=== PATIENT | male | born 1935 | race Caucasian/White ===

== ENCOUNTER → 2017-09-23 | Outpatient (CLI) | payer MEDICARE, OTHER ==
--- NOTE | 2017-09-23 14:50 | CT ---
EXAMINATION TYPE: CT lumbar spine w con DATE OF EXAM: 09/23/2017 COMPARISON: NONE HISTORY: Radiculopathy, DDD CT DLP: 1002 mGycm Automated exposure control for dose reduction was used. CONTRAST: CT scan of the lumbar is performed with IV Contrast, patient injected with 80 mL of Isovue 300. Enhanced CT of the lumbar spine was performed. Bone and soft tissue window settings are submitted as well as coronal and sagittal reconstructions. FINDINGS: Atherosclerosis is seen of the abdominal aorta and its branches. There are bilateral too sm all to accurately characterize renal hypoattenuating lesions measuring 5 mm on the right and 5 mm on the left. There is grade 1 anterolisthesis of L4 on L5 without pars interarticularis defects, therefore likely degenerative in nature. Multilevel moderate degenerative changes of the lumbar spine are seen as inte rvertebral disc space narrowing, endplate sclerosis, osteophytes and facet arthropathy. There is a sl ight levoscoliotic curvature of the lumbar spine. Nonspecific sclerotic lesion is seen within the S2 segment of the sacrum. L1-L2: There is a broad-based disc bulge, facet arthropathy and ligamentum flavum buckling creating m ild bilateral neural foraminal narrowing and without significant spinal canal stenosis. L2-L3: There is a broad-based disc bulge, facet arthropathy and ligamentum flavum buckling creating m ild spinal canal stenosis and mild bilateral neural foraminal narrowing. L3-L4: There is a broad-based disc bulge, facet arthropathy and ligamentum flavum buckling creating m ild to moderate spinal canal stenosis and mild bilateral neural foraminal narrowing. L4-L5: There is disc uncovering from the anterolisthesis as well as a broad-based disc bulge and comb ination with facet arthropathy and ligamentum flavum buckling create severe spinal canal stenosis. No CSF is seen around the spinal cord on image 59 of series 3. L5-S1: There is facet arthropathy, left greater than right, and a broad-based disc bulge creating mil d right and moderate to severe left neural foraminal narrowing. No significant spinal canal stenosis. IMPRESSION: 1. Moderate multilevel degenerative disc disease resulting in severe spinal canal stenosis at L4-L5, mild to moderate spinal canal stenosis at L3-L4, mild spinal canal stenosis at L2-L3 in variable degr ees of neural foraminal narrowing as described above. 2. Grade 1 anterolisthesis of L4 on L5 that is likely on a degenerative basis without pars interartic ularis defects.
== END ==
LOC: RADCTMAIN 12:27
PROVIDERS: ATTEND Family Medicine
DX: M51.16 Intervertebral disc disorders with radiculopathy, lumbar region (principal); M48.061 Spinal stenosis, lumbar region without neurogenic claudication
CPT/HCPCS: 82565; 84520; 72132; 36415; Q9967

== ENCOUNTER 2018-08-24 09:11 | Day surgery (SDC) | payer MEDICARE, OTHER ==
[2018-08-20 11:31] VITALS: BMI 28.8
[~2018-08-24 09:11] MED LIST: LACTATED RINGERS 1,000 ML IV SCH; LIDOCAINE 1% 20 ML VIAL (10MG/ML) FOR IV START INTRADERMA PRN
[2018-08-24 09:36] VITALS: RESP 18; TEMP 98.4
[2018-08-24] MEDS ORDERED: LIDOCAINE 1% INJ 10MG/ML (20 ML MDV) ONE (10:00)
[2018-08-24] MEDS ORDERED: PROPOFOL 10 MG/ML 20 ML VIAL IV ONE (10:00)
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
--- NOTE | 2018-08-24 10:21 | P.OP ---
Date of Procedure: 08/24/18 Preoperative Diagnosis: Screening colonoscopy Postoperative Diagnosis: Diverticulosis Procedure(s) Performed: Colonoscopy Anesthesia: MAC Surgeon: Brigido Solis Pathology: none sent Condition: stable Disposition: PACU Description of Procedure: The patient's placed on the endoscopy table in the lateral position. He received IV sedation. Digital rectal exam was performed which revealed no abnormalities. Flexible colonoscope was placed patient anus passed throughout the entire colon. The ileocecal valve was visually is. The cecum, ascending and transverse colon appeared normal. In the descending and sigmoid colon there is extensive diverticular changes. There is no evidence of any diverticulitis. The scope was then brought back the rectum and this appeared normal. Scope was withdrawn for patient.
[2018-08-24 10:23] VITALS: PULSE 58
[2018-08-24 10:51] VITALS: BP 139/72
== END 2018-08-24 11:05 | disposition home or self-care (01) ==
LOC: ORWHC2ENDO 09:11
PROVIDERS: ATTEND Surgery
DX: Z12.11 Encounter for screening for malignant neoplasm of colon (principal); K57.30 Diverticulosis of large intestine without perforation or abscess without bleeding; E78.5 Hyperlipidemia, unspecified; H91.90 Unspecified hearing loss, unspecified ear; I10 Essential (primary) hypertension; K21.9 Gastro-esophageal reflux disease without esophagitis; Z79.82 Long term (current) use of aspirin; Z79.899 Other long term (current) drug therapy; Z87.891 Personal history of nicotine dependence; Z98.42 Cataract extraction status, left eye; Z98.41 Cataract extraction status, right eye; Z79.51 Long term (current) use of inhaled steroids; Z80.9 Family history of malignant neoplasm, unspecified
CPT/HCPCS: J2001; J2704; G0121

== ENCOUNTER 2019-12-13 18:45 | Emergency (ER) | payer OTHER, MEDICARE ==
[2019-12-13] MEDS ORDERED: SODIUM CHLORIDE 0.9% 500 ML 500 ML IV STA (18:52)
[2019-12-13] MEDS ORDERED: DIPH,PERTUS(ACELL)TETVAC-LF 0.5 ML VIAL IM ONE (18:52)
[2019-12-13 18:53] VITALS: BP 144/99; PULSE 82; RESP 16; TEMP 98.6
[2019-12-13 19:13] LABS: HCT 33.2 % (39.0-53.0); HGB 11.2 gm/dL (13.0-17.5); MCH 32.4 pg (25.0-35.0); MCHC 33.9 g/dL (31.0-37.0); MCV 95.6 fL (80.0-100.0); Mean Platelet Volume 9.7; Platelet Count 124 k/uL (150-450); RBC 3.47 m/uL (4.30-5.90); RDW 12.1 % (11.5-15.5); WBC 4.2 k/uL (3.8-10.6)
[2019-12-13 19:16] LABS: ALT 23 U/L (4-49); AST 32 U/L (17-59); African American GFR (CKD) 65 (>60 ml/min/1.73 sqM); Albumin 3.7 g/dL (3.5-5.0); Alcohol <10 mg/dL; Alkaline Phosphatase 70 U/L (38-126); Anion Gap 7 mmol/L; Blood Urea Nitrogen 22 mg/dL (9-20); Calcium 9.3 mg/dL (8.4-10.2); Carbon Dioxide 24 mmol/L (22-30); Chloride 105 mmol/L (98-107); Glucose 148 mg/dL (74-99); Non-African American GFR(CKD) 56 (>60 ml/min/1.73 sqM); Potassium 3.7 mmol/L (3.5-5.1); Sodium 136 mmol/L (137-145); Total Bilirubin 0.5 mg/dL (0.2-1.3); Total Protein 5.9 g/dL (6.3-8.2)
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
[2019-12-13 19:28] LABS: Prothrombin Time 10.3 sec (9.0-12.0)
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
[2019-12-13] MEDS ORDERED: MORPHINE SULFATE 2 MG/ML SYRINGE IVP STA (20:06)
[2019-12-13 20:07] LABS: Partial Thromboplastin Time 21.8 sec (22.0-30.0)
[2019-12-13 20:14] LABS: Appearance,Urine Clear (Clear); Bilirubin,Urine Negative (Negative); Blood,Urine Negative (Negative); Color,Urine Yellow; Glucose,Urine (UA) Negative (Negative); Ketones,Urine Negative (Negative); Leukocyte Esterase,Urine Negative (Negative); Nitrite,Urine Negative (Negative); Protein,Urine Negative (Negative); Specific Gravity,Urine 1.011 (1.001-1.035); Urobilinogen,Urine <2.0 mg/dL (<2.0)
[2019-12-13 20:25] LABS: Eosinophils # (M) 0.04 k/uL (0-0.7); Monocytes # (M) 0.55 k/uL (0-1.0); Neutrophils # (M) 2.02 k/uL (1.3-7.7); Neutrophils % (M) 48 %; Nucleated Red Blood Cells 0 /100 WBC (0-0); Total Cells Counted 100
[2019-12-13 20:34] LABS: Cocaine Screen,Urine Not Detected (NotDetected); Phencyclidine Screen,Urine Not Detected (NotDetected); Urn Cannabinoid Scrn Detected (NotDetected)
[2019-12-13 20:35] LABS: Amphetamine Screen,Urine Not Detected (NotDetected); Barbiturate Screen,Urine Not Detected (NotDetected); Benzodiazepines Screen,Urine Not Detected (NotDetected); Methadone Screen, Urine Not Detected (NotDetected); Opiate Screen,Urine Not Detected (NotDetected); Oxycodone Screen, Urine Not Detected (NotDetected); Tricyclic Antidepressant,Urine Not Detected (NotDetected)
== END 2019-12-13 20:35 | disposition other institution (70) ==
LOC: EC 18:45
DX: S00.83XA Contusion of other part of head, initial encounter (principal); S62.637A Displaced fracture of distal phalanx of left little finger, initial encounter for closed fracture; S61.203A Unspecified open wound of left middle finger without damage to nail, initial encounter; S61.205A Unspecified open wound of left ring finger without damage to nail, initial encounter; S00.432A Contusion of left ear, initial encounter; S20.222A Contusion of left back wall of thorax, initial encounter; S40.022A Contusion of left upper arm, initial encounter; S00.01XA Abrasion of scalp, initial encounter; I10 Essential (primary) hypertension; H91.90 Unspecified hearing loss, unspecified ear; I60.9 Nontraumatic subarachnoid hemorrhage, unspecified; E78.5 Hyperlipidemia, unspecified; K21.9 Gastro-esophageal reflux disease without esophagitis; N42.9 Disorder of prostate, unspecified; Z79.1 Long term (current) use of non-steroidal anti-inflammatories (NSAID); Z79.82 Long term (current) use of aspirin; Z79.51 Long term (current) use of inhaled steroids; Z79.899 Other long term (current) drug therapy; Z23 Encounter for immunization; V63.5XXA Driver of heavy transport vehicle injured in collision with car, pick-up truck or van in traffic accident, initial encounter; Y92.410 Unspecified street and highway as the place of occurrence of the external cause
CPT/HCPCS: 36415; 93005; 86900; 86901; 80053; 84484; 85025; 85610; 85730; 86850; 81003; 80306; 80320; 72170; 73130; 71045; 72125; 70450; 71260; 74177; 90715; 99291; 96365; 96375; 90471; J0690; J2270; Q9967

== ENCOUNTER → 2021-11-05 | Outpatient (CLI) | payer MEDICARE, OTHER ==
--- NOTE | 2021-11-05 10:09 | US ---
EXAMINATION TYPE: US kidneys/renal and bladder DATE OF EXAM: 11/05/2021 COMPARISON: CT 12/13/19 CLINICAL HISTORY: N289. Renal dz EXAM MEASUREMENTS: Right Kidney: 11.3 x 5.0 x 5.3 cm Left Kidney: 10.8 x 4.2 x 4.0 cm Right Kidney: Cyst seen in on lateral border measuring 2.9 x 2.7 x 2.5 cm appears simple. Left Kidney: No hydronephrosis or masses seen Bladder: wnl Bilateral Jets seen: Yes Prostate was visualized measuring 3.5 x 3.4 x 3.3 cm. IMPRESSION: 1. Right renal cyst.
[2021-11-05 10:46] LABS: Appearance,Urine Clear (Clear); Bilirubin,Urine Negative (Negative); Blood,Urine Negative (Negative); Color,Urine Colorless; Glucose,Urine (UA) Negative (Negative); Ketones,Urine Negative (Negative); Leukocyte Esterase,Urine Negative (Negative); Nitrite,Urine Negative (Negative); PH, Urine 5.5 (5.0-8.0); Protein,Urine Negative (Negative); Specific Gravity,Urine 1.006 (1.001-1.035); Urobilinogen,Urine <2.0 mg/dL (<2.0)
[2021-11-05 16:03] LABS: HGB 10.8 g/dL (13.0-17.0); MCH 31.3 pg (27.0-32.0); MCHC 31.8 g/dL (32.0-37.0); MCV 98.6 fL (80.0-97.0); Mean Platelet Volume 13.6 fL (9.5-12.2); NRBC Per 100 WBC 0 /100 WBCS (0.0-0.0); Platelet Count 96 X 10*3/uL (140-440); RBC 3.45 X 10*6/uL (4.40-5.60); RDW 11.9 % (11.5-14.5); WBC 2.77 X 10*3/uL (4.50-10.00)
[2021-11-05 16:22] LABS: African American GFR (CKD) 45.2 (60.0-200.0); Albumin 4.4 g/dL (3.8-4.9); Albumin/Globulin Ratio 1.91 (1.60-3.17); Anion Gap 9.5 mmol/L (10.00-18.00); BUN/Creat Ratio 16.81 Ratio (12.00-20.00); Blood Urea Nitrogen 26.9 mg/dL (9.0-27.0); Calcium 9.6 mg/dL (8.7-10.3); Carbon Dioxide 24.5 mmol/L (20.0-27.5); Globulin 2.3 g/dL (1.6-3.3); Phosphorus 2.7 mg/dL (2.4-5.1); Potassium 4.1 mmol/L (3.5-5.5); Total Bilirubin 0.7 mg/dL (0.30-1.20); Total Protein 6.7 g/dL (6.2-8.2)
== END | disposition home or self-care (01) ==
LOC: RADUSWWP 08:39
PROVIDERS: ATTEND Family Medicine
DX: N18.1 Chronic kidney disease, stage 1 (principal)
CPT/HCPCS: 76770; 80053; 81003; 84100; 85027

== ENCOUNTER → 2021-11-07 | Outpatient (CLI) | payer MEDICARE, OTHER ==
[2021-11-08 00:53] LABS: Total Protein 24 Hour,Urine 4.5 mg/dL (0.0-165.0)
[2021-11-08 20:57] LABS: Total Volume 24 Hour,Urine 4200 mL
== END | disposition home or self-care (01) ==
LOC: LABWHC1 08:07
PROVIDERS: ATTEND Family Medicine
DX: N18.1 Chronic kidney disease, stage 1 (principal)
CPT/HCPCS: 81050; 84156

== ENCOUNTER 2023-01-30 07:42 | Day surgery (SDC) | payer MEDICARE, OTHER ==
[2023-01-30 09:15] VITALS: TEMP 97.9
--- NOTE | 2023-01-30 10:10 | CT ---
EXAMINATION TYPE: CT lumbar spine w con, [place] myelogram lumbosacral DATE OF EXAM: 01/30/2023 10:00 AM HISTORY: Lower extremity pain and numbness Informed consent was obtained and all the patient's questions were answered. The L3-L4 level was loc alized under fluoroscopy. Standard sterile technique was utilized as well as appropriate local anest hesia 1% Lidocaine and sodium bicarbonate. Spinal needle was introduced into the thecal sac under fl uoroscopic guidance and 10 ml of [id number] was injected. The patient tolerated the procedure well and left the department in stable condition. CT myelography is to follow. IMPRESSION: Successful myelography lumbar spine EXAMINATION TYPE: CT lumbar spine w con, [place] myelogram lumbosacral DATE OF EXAM: 01/30/2023 COMPARISON: None HISTORY: POST MYELOGRAM CT DLP: 499.50 mGycm Automated exposure control for dose reduction was used. CONTRAST: CT scan of the lumbar is performed with IV Contrast, patient injected with 10ml mL of Isovue M200. Enhanced CT of the lumbar spine was performed. Bone and soft tissue window settings are submitted as well as coronal and sagittal reconstructions. L1-L2: Moderate degenerative disc space narrowing with posterior disc bulge. Mild effacement of ventr al thecal sac. No evidence for central stenosis. His mild left lateral recess stenosis and left mina inal encroachment. L2-L3: Moderate disc desiccation moderate circumferential disc bulge greatest posteriorly. Effacement of the ventral thecal sac with mild constriction noted. Borderline central stenosis. Bilateral neura l foraminal encroachment. L3-L4: Moderate disc desiccation with posterior disc bulge. Hypertrophy of ligamentum flavum and face t joint arthropathy contributing to moderate central stenosis. There is moderate bilateral neural for aminal encroachment. L4-L5: Moderate disc desiccation with posterior disc bulge. Hypertrophy of ligamentum flavum and face t joint arthropathy contributing to moderate central stenosis. There is moderate bilateral neural for aminal encroachment. L5-S1: Vacuum disc noted with severe degenerative disc space narrowing. Posterior disc bulge with lef t lateral recess stenosis. No evidence for central stenosis. Mild bilateral foraminal encroachment. IMPRESSION: 1. Multilevel degenerative disc disease as discussed multilevel central stenosis and foraminal encroa chment as outlined above.
[2023-01-30 10:35] VITALS: RESP 16
[2023-01-30 13:21] VITALS: BP 132/62; PULSE 64
== END 2023-01-30 13:57 | disposition home or self-care (01) ==
LOC: RADPROMAIN 07:42
PROVIDERS: ATTEND Orthopaedic Surgery
DX: M47.817 Spondylosis without myelopathy or radiculopathy, lumbosacral region (principal); M48.062 Spinal stenosis, lumbar region with neurogenic claudication; M51.37 Other intervertebral disc degeneration, lumbosacral region
CPT/HCPCS: 62304; 72132; Q9966

== ENCOUNTER → 2023-04-24 | Outpatient (CLI) | payer OTHER ==
[2023-04-24 08:54] VITALS: BP 161/74; PULSE 47; RESP 16; TEMP 97.6
--- NOTE | 2023-04-24 14:50 | P.PAINPG ---
PQRS Measure Charge Sheet Comment: HISTORY OF PRESENT ILLNESS: A 88 yr old male as a referral from the [facility] presents today w severe and chronic LBP > 10 yrs secondary to DDD, spondylosis and facet arthropathy without myelopathy for evaluation. Pt states pain level is provoked at 7/10 in intensity, constant, localized in the mid to lower lumbar spine, predominantly axial, spre in character w occasional shooting pain towards the L hip, back of the LLE. Pain is provoked by standing up from a sitting position. Pain is alleviated by PT integrated w massage x 5 wks in Dec 2022, chiropractic tyreatments monthly x 4 mo which he is currently in, heat, medications (Tyl), CBD oil, topical, repositioning and rest. Oswestry axial pain score at 12. PMH: OA, GERD, Hearing Disorder, Hyperlipidemia, HTN, BPH PSH: TURP, Hernia Repair x2, Hemorrhoidectomy, Sinus Surgery, L Carotid Endarectomy, EGD/ Colonoscopies, Excision Cataracts w Lens Implants, Blepharoplasty, LESIs SH: Negative x3. history. Retired. FH: Sis- [place]. Mo- [place]. All: See list Meds: See list REVIEW OF ORGAN SYSTEMS: CONSTITUTIONAL: No fevers or chills. No recent weight loss. NEUROLOGICAL: + numbness and tingling along the distal extremities. No seizure disorders or headaches. MUSCULOSKELETAL: + pain PSYCHIATRIC: Denies current depression or suicidal thoughts. Physical Examinations : Constitutional : Cooperative , not in acute distress . Neurologic : Cranial nerve II to XII intact. No focal neurological deficits. Psychiatric : alert & oriented x 3. Matching mood & appropriate affect. Judgment & insight intact. Musculoskeletal : Cervical Spine Motor strength in the deltoid and biceps: Normal right side. Normal Left side Motor strength biceps and the wrist extensors: Normal right side . Normal left side Motor strength in the triceps muscle: Normal right side. Normal left side Deep tendon reflexes: Normal at the biceps. Normal at Brachioradialis. Normal at triceps Vertebral body tenderness to deep palpation over Cervical facet loading test: positive bilaterally Spurling test: positive bilaterally Neck distraction test: positive bilaterally Gia sign: positive bilaterally Lumbar spine Motor strength lower extremities ,thigh and legs 5/5 Right side , 5/5 Left side Deep tendon reflexes : Normal Knee Jerk. Normal Ankle Jerk Vertebral body tenderness over L5 Granger Test positive Lumbar facet Loading Test: positive Right / positive Left Range of motion of the lumbar spine Flexion 30 degrees, extension 10 degrees Straight Leg Raise test: Left/ Right positive at <30 degrees Alexandra test: positive right / positive left. Severe tenderness over the Sacroiliac joint on the Right / Left sides Gaenslen test: positive bilaterally Seated flexion test: positive bilaterally. Sacral spine : Severe tenderness over the Sacroiliac joint: right side / left side Range of motion: Flexion of the lumbar spine <60 degrees Range of motion: Extension of the lumbar spine <20 degrees Gaenslen's Test positive Alexandra test: positive right side / left side Thigh Thrust Test Sacral Thrust Test Imaging: CT noncontrast of the lumbar spine from 01/30/23 reviewed Assessment/ Plan : Lumbar DDD Recommendation of L TFESI L5-S1 #1. May need a series of injections for optimal pain relief .Risks, benefits of procedure discussed and patient verbalized understanding. Admits to anti- coagulant use or medical history of diabetes. Protocol for discontinuation/ continuation of medications jerad procedure discussed. All questions answered. I have spent greater than 30 minutes on patient care today. Dr Hernandez was available by phone for the evaluation of this patient. The time was used to review the medical records including relevant urine studies and Prescription history (MAPs), review of the available imaging, evaluation and examination of the patient, coordination of care with the medical staff and if applicable referring physicians, as well as creation of the medical record PQRS Narrative: Smoking Status Former smoker Home Medications: Ambulatory Orders Docusate [Colace] 100 mg PO HS 08/20/18 Ezetimibe/Simvastatin [Ezetimibe-Simvastatin 10-80 mg] 1 each PO DAILY 08/20/18 Finasteride [Proscar] 5 mg PO DAILY 08/20/18 Fluticasone Nasal [place] [Flonase Nasal [place]] 1 spr EA NOSTRIL DAILY 08/20/18 Losartan/Hydrochlorothiazide [Losartan-Hctz 100-12.5 mg Tab] 1 each PO DAILY 08/20/18 Montelukast [Singulair] 10 mg PO DAILY 08/20/18 Multivit-Min/FA/Lycopen/Lutein [Centrum Silver Tablet] 1 each PO DAILY 08/20/18 Omeprazole [PriLOSEC] 20 mg PO AC-BRKFST 08/20/18 Propylene Glycol [Systane Complete] 1 drop BOTH EYES DIRECTED PRN 08/20/18 Saw [place] 80 mg PO BID 08/20/18 Tamsulosin [Flomax] 0.4 mg PO DAILY 08/20/18 Aspirin [Adult Low Dose Aspirin EC] 81 mg PO DAILY 01/21/23 Controlled Substance Measures - Controlled Substance Measures Is patient prescribed a controlled substance at discharge?: No
== END ==
LOC: PNWHC3 07:56
PROVIDERS: ATTEND Specialist
DX: M51.36 Other intervertebral disc degeneration, lumbar region (principal); M19.90 Unspecified osteoarthritis, unspecified site; K21.9 Gastro-esophageal reflux disease without esophagitis; E78.2 Mixed hyperlipidemia; I65.29 Occlusion and stenosis of unspecified carotid artery; N18.9 Chronic kidney disease, unspecified
CPT/HCPCS: 99211

== ENCOUNTER 2023-05-06 08:18 | Day surgery (SDC) | payer OTHER ==
[2023-05-01 15:49] VITALS: BMI 23.2
[2023-05-06] MEDS ORDERED: LACTATED RINGERS 1,000 ML IV SCH (09:05)
[2023-05-06 09:58] VITALS: TEMP 98.4
[2023-05-06] MEDS ORDERED: methylPREDNISolone ACETATE 40 MG/ML 1 ML VIAL ONE (10:06)
[2023-05-06] MEDS ORDERED: IOPAMIDOL M200 10 ML VIAL ONE (10:06)
--- NOTE | 2023-05-06 10:15 | P.PCN ---
Date of Procedure: 05/06/23 Procedure(s) Performed: PREOPERATIVE DIAGNOSIS: 1-Lumbar radiculopathy . 2-lumbar degenerative disc disease. 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 2-lumbar degenerative disc disease. 3-lumbar spondylosis with facet arthropathy without myelopathy PROCEDURE 1. Transforaminal epidural steroid injection under fluoroscopic guidance at left L5-S1 level. (Fluoroscopy images stored on file in the radiology Department ) 2. Lumbar epidurogram . ANESTHESIA: Local with 1% lidocaine 3 ml. EBL: Minimal PROCEDURE INDICATION: The patient with low back pain and radiculopathy symptoms unresponsive to conservative treatment. PROCEDURE DESCRIPTION / TECHNIQUE: The patient was seen and identified in the preoperative area. Risks, benefits, complications, and alternatives were discussed with the patient. The patient agreed to proceed with the procedure and signed the consent. IV was started, and vital signs were stable. Patient was taken to the OR and time out was completed. The patient was placed in the prone position on procedure table and a pillow was placed under the abdomen to reduce lumbar lordosis. The lumbosacral area was prepped and draped in the usual sterile fashion. Critical pause was taken. Vital signs were closely monitored during the procedure. Using oblique fluoroscopy, the chin of the ``Bo dog at left L5-S1 level was identified, and the skin and deeper tissues just below was localized with 1% lidocaine. Subsequently, a 22-gauge 3.5-inch spinal needle was advanced under a tunneled view fluoroscopic guidance just underneath the chin of the ``Bo dog at the left L5-S1 Under lateral fluoroscopy, the needle was then advanced to the posterior border of the interforaminal space. After negative aspiration of CSF and blood and with no paresthesias, 1 mL Isovue 200 contrast dye was injected excellent epidurogram and outlining of the nerve root Subsequently, 3 mL of block solution containing 40 mg Depo-Medrol and 2 mL of 0.9% normal saline PF was injected. Needle was removed . At the end of the procedure, skin was cleansed, and bandages were applied. COMPLICATIONS:none DISPOSITION / PLANS: The patient was placed in a supine position and transferred to the recovery area in a stable condition for observation. There was no evidence of lower extremity motor or sensory deficit after the procedure. Patient was discharged from the recovery room after meeting discharge criteria. Home discharge instructions were given to the patient by the staff. The patient was reexamined prior to discharge.
--- NOTE | 2023-05-06 10:22 | FL ---
EXAMINATION TYPE: FL guided pain mgmt statistic Intraoperative/procedural fluoroscopic services were provided. Total fluoroscopy time is 16.5 seconds with a total of 1 submitted images to PACS. Please s ee the operative/procedural note for further details. DAP: [id number] mGym2
[2023-05-06 10:24] VITALS: BP 159/79; PULSE 71; RESP 18
== END 2023-05-06 10:36 | disposition home or self-care (01) ==
LOC: ORPAIN 08:18
PROVIDERS: ATTEND Specialist
DX: M51.16 Intervertebral disc disorders with radiculopathy, lumbar region (principal); M47.26 Other spondylosis with radiculopathy, lumbar region; I10 Essential (primary) hypertension; Z79.82 Long term (current) use of aspirin
CPT/HCPCS: 64483; J1030; Q9966

== ENCOUNTER → 2023-05-22 | Outpatient (CLI) | payer OTHER ==
[2023-05-22 09:28] VITALS: BP 158/82; PULSE 56; RESP 15; TEMP 98
--- NOTE | 2023-05-22 14:30 | P.PAINPG ---
PQRS Measure Charge Sheet Comment: HISTORY OF PRESENT ILLNESS: A 88 yr old male presents today w severe and chronic LBP > 10 yrs secondary to post laminectomy syndrome for evaluation s/p L TFESI L5-S1 #1. Pt states he experienced 70% pain relief for the last 3 wks s/p procedure. Pt states pain level is provoked at 6/10 in intensity, constant, localized in the L lower lumbar spine, predominantly axial, achy in character w occasional shooting pain towards the L hip, back of the LLE. Pain is provoked by standing up from a sitting position. Pain is alleviated by PT integrated w massage x 5 wks in Dec 2022, chiropractic treatments monthly x 4 mo which he is currently in, heat, medications, topical, topical, repositioning and rest. Oswestry axial pain score at 12. Interventional procedures include L TFESI L5-S1 x1 Medications include Tyl, CBD oil REVIEW OF ORGAN SYSTEMS: CONSTITUTIONAL: No fevers or chills. No recent weight loss. NEUROLOGICAL: + numbness and tingling along the distal extremities. No seizure disorders or headaches. MUSCULOSKELETAL: + pain PSYCHIATRIC: Denies current depression or suicidal thoughts. Physical Examinations : Constitutional : Cooperative , not in acute distress . Neurologic : Cranial nerve II to XII intact. No focal neurological deficits. Psychiatric : alert & oriented x 3. Matching mood & appropriate affect. Judgment & insight intact. Musculoskeletal : Cervical Spine Motor strength in the deltoid and biceps: Normal right side. Normal Left side Motor strength biceps and the wrist extensors: Normal right side . Normal left side Motor strength in the triceps muscle: Normal right side. Normal left side Deep tendon reflexes: Normal at the biceps. Normal at Brachioradialis. Normal at triceps Vertebral body tenderness to deep palpation over Cervical facet loading test: positive bilaterally Spurling test: positive bilaterally Neck distraction test: positive bilaterally Gia sign: positive bilaterally Lumbar spine Motor strength lower extremities ,thigh and legs 5/5 Right side , 5/5 Left side Deep tendon reflexes : Normal Knee Jerk. Normal Ankle Jerk Vertebral body tenderness over L5 Granger Test positive Lumbar facet Loading Test: positive Right / positive Left Range of motion of the lumbar spine Flexion 30 degrees, extension 10 degrees Straight Leg Raise test: Left/ Right positive at <30 degrees Alexandra test: positive right / positive left. Severe tenderness over the Sacroiliac joint on the Right / Left sides Gaenslen test: positive bilaterally Seated flexion test: positive bilaterally. Sacral spine : Severe tenderness over the Sacroiliac joint: right side / left side Range of motion: Flexion of the lumbar spine <60 degrees Range of motion: Extension of the lumbar spine <20 degrees Gaenslen's Test positive Alexandra test: positive right side / left side Thigh Thrust Test Sacral Thrust Test Imaging: CT noncontrast of the lumbar spine from 01/30/23 reviewed Assessment/ Plan : Lumbar DDD, post laminectomy syndrome Recommendation of L TFESI L5-S1 #2. May need a series of injections for optimal pain relief .Risks, benefits of procedure discussed and patient verbalized understanding. Admits to anti- coagulant use or medical history of diabetes. Protocol for discontinuation/ continuation of medications jerad procedure discussed. All questions answered. I have spent greater than 30 minutes on patient care today. Dr Hernandez was available by phone for the evaluation of this patient. The time was used to review the medical records including relevant urine studies and Prescription history (MAPs), review of the available imaging, evaluation and examination of the patient, coordination of care with the medical staff and if applicable referring physicians, as well as creation of the medical record PQRS Narrative: Smoking Status Former smoker Hx Alcohol Use (MH) No Home Medications: Ambulatory Orders Docusate [Colace] 100 mg PO HS 08/20/18 Ezetimibe/Simvastatin [Ezetimibe-Simvastatin 10-80 mg] 1 each PO DAILY 08/20/18 Finasteride [Proscar] 5 mg PO DAILY 08/20/18 Fluticasone Nasal [place] [Flonase Nasal [place]] 1 spr EA NOSTRIL DAILY 08/20/18 Losartan/Hydrochlorothiazide [Losartan-Hctz 100-12.5 mg Tab] 1 each PO DAILY 08/20/18 Montelukast [Singulair] 10 mg PO DAILY 08/20/18 Multivit-Min/FA/Lycopen/Lutein [Centrum Silver Tablet] 1 each PO DAILY 08/20/18 Saw [place] 80 mg PO BID 08/20/18 Tamsulosin [Flomax] 0.4 mg PO DAILY 08/20/18 Aspirin [Adult Low Dose Aspirin EC] 81 mg PO DAILY 01/21/23 Apixaban [Eliquis] 5 mg PO BID 04/24/23 Calcium Carbonate [Calcium] 600 mg PO DAILY 05/01/23 Cyanocobalamin (Vitamin B-12) [Vitamin B-12] 1,000 mcg PO DAILY 05/01/23 Ferrous Sulfate [Feosol] 325 mg PO DAILY 05/01/23 Omeprazole/Sodium Bicarbonate [Omeprazole-Bicarb 20-1,100 Cap] 1 each PO 05/01/23 Controlled Substance Measures - Controlled Substance Measures Is patient prescribed a controlled substance at discharge?: No
== END ==
LOC: PNWHC3 08:24
PROVIDERS: ATTEND Specialist
DX: M51.36 Other intervertebral disc degeneration, lumbar region (principal); M96.1 Postlaminectomy syndrome, not elsewhere classified; Z87.891 Personal history of nicotine dependence; Z79.82 Long term (current) use of aspirin
CPT/HCPCS: 99211

== ENCOUNTER → 2023-06-03 | Day surgery (SDC) | payer OTHER ==
[2023-05-30 09:20] VITALS: BMI 22.8
[~2023-06-03] MED LIST changes: +DEXAMETHASONE SOD PHOSPHATE 10 MG/ML 1 ML VIAL ONE; +IOPAMIDOL M300 15ML VIAL ONE; -LIDOCAINE 1% 20 ML VIAL (10MG/ML) FOR IV START INTRADERMA PRN; +ROPIVACAINE 5MG/ML 20ML VIAL ONE
[2023-06-03 08:32] VITALS: TEMP 97.1
--- NOTE | 2023-06-03 08:41 | P.PCN ---
Description of Procedure: PREOPERATIVE DIAGNOSIS: 1-Lumbar radiculopathy . 2-lumbar degenerative disc disease. 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 2-lumbar degenerative disc disease. 3-lumbar spondylosis with facet arthropathy without myelopathy PROCEDURE 1. Transforaminal epidural steroid injection under fluoroscopic guidance at LEFT L5-S1 level. (Fluoroscopy images stored on file in the radiology Department ) 2. Lumbar epidurogram . ANESTHESIA: Local with 1% lidocaine 5 ml. subcutaneously. Continuous pulse ox, EKG, blood pressure and verbal communication was maintained with the patient. EBL: Minimal PROCEDURE INDICATION: The patient with low back pain and radiculopathy symptoms unresponsive to conservative treatment. The patient was seen and identified in the preoperative area. Risks, benefits, complications, and alternatives were discussed with the patient. The patient agreed to proceed with the procedure and signed the consent. IV was started, and vital signs were stable. PROCEDURE DESCRIPTION / TECHNIQUE: After getting consent, patient was taken to the OR and time out was completed. The patient was placed in the prone position on procedure table and a pillow was placed under the abdomen to reduce lumbar lordosis. The lumbosacral area was prepped and draped in the usual sterile fashion. Critical pause was taken. After injecting 5 mL of plain 1% lidocaine subcutaneously, under oblique view of the fluoroscope, a 22-gauge spinal needle was introduced under the tunnel view of the fluoroscope on the LEFT side and the needle was advanced so that the tip of the needle was at the posterior inferior quadrant of the intervertebral foramen at the lateral view of the fluoroscope and in the lateral third of the facet column in the AP view of the fluoroscope. Negative CSF, negative blood, negative paresthesia. After needle position confirmation by AP and cross table lateral view, 3 mL of Isovue-M 200 contrast was injected under continuous fluoroscope. No contrast was noted in the intrathecal or intravascular space. The epidurogram was noted. Again after repeated negative aspiration 2.5 mL solution was injected which consists 1.5 mL of normal saline mixed with 1 mL of 20 mg dexamethasone. Needle was removed . At the end of the procedure, skin was cleansed, and bandages were applied. DISPOSITION / PLANS: No complication. The patient tolerated the procedure well. The patient was placed in a supine position and transferred to the recovery area in a stable condition for observation. There was no evidence of lower extremity motor or sensory deficit after the procedure. Patient was discharged from the recovery room after meeting discharge criteria. Home discharge instructions were given to the patient by the staff. The patient was reexamined prior to discharge.
[2023-06-03 09:14] VITALS: BP 152/74; PULSE 63; RESP 16
--- NOTE | 2023-06-03 09:30 | FL ---
EXAMINATION TYPE: FL guided pain mgmt statistic Intraoperative/procedural fluoroscopic services were provided. Total fluoroscopy time is 77 seconds with a total of 3 submitted images to PACS. Please see the operative/procedural note for further details. DAP: [id number] mGym2
== END ==
LOC: ORPAIN 07:21
PROVIDERS: ATTEND Pain Medicine Interventional Pain Medicine
DX: M51.16 Intervertebral disc disorders with radiculopathy, lumbar region (principal); M47.26 Other spondylosis with radiculopathy, lumbar region; I48.91 Unspecified atrial fibrillation; Z79.01 Long term (current) use of anticoagulants
CPT/HCPCS: 64483; J1100; Q9967; J2795

== ENCOUNTER → 2023-06-25 | Outpatient (CLI) | payer OTHER ==
[2023-06-25 10:35] VITALS: BP 178/70; PULSE 60; RESP 16; TEMP 97.1
--- NOTE | 2023-06-25 12:41 | P.PAINPG ---
PQRS Measure Charge Sheet Comment: HISTORY OF PRESENT ILLNESS: A 88 yr old male presents today w severe and chronic LBP > 10 yrs secondary to post laminectomy syndrome for evaluation s/p L TFESI L5-S1 #2. Pt states he experienced 80 % pain relief for the last 3 wks s/p procedure. Pt states pain level is provoked at 2 /10 in intensity, constant, localized in the L lower lumbar spine, predominantly axial, achy in character w occasional shooting pain towards the L hip, back of the LLE. Pain is provoked by standing up from a sitting position. Pain is alleviated by PT integrated w massage x 5 wks in Dec 2022, chiropractic treatments monthly x 4 mo which he is currently in, heat, medications, topical, topical, repositioning and rest. Oswestry axial pain score at 12. Interventional procedures include L TFESI L5-S1 x2 Medications include Tyl, CBD oil REVIEW OF ORGAN SYSTEMS: CONSTITUTIONAL: No fevers or chills. No recent weight loss. NEUROLOGICAL: + numbness and tingling along the distal extremities. No seizure disorders or headaches. MUSCULOSKELETAL: + pain PSYCHIATRIC: Denies current depression or suicidal thoughts. Physical Examinations : Constitutional : Cooperative , not in acute distress . Neurologic : Cranial nerve II to XII intact. No focal neurological deficits. Psychiatric : alert & oriented x 3. Matching mood & appropriate affect. Judgment & insight intact. Musculoskeletal : Cervical Spine Motor strength in the deltoid and biceps: Normal right side. Normal Left side Motor strength biceps and the wrist extensors: Normal right side . Normal left side Motor strength in the triceps muscle: Normal right side. Normal left side Deep tendon reflexes: Normal at the biceps. Normal at Brachioradialis. Normal at triceps Vertebral body tenderness to deep palpa tion over Cervical facet loading test: positive bilaterally Spurling test: positive bilaterally Neck distraction test: positive bilaterally Gia sign: positive bilaterally Lumbar spine Motor strength lower extremities ,thigh and legs 5/5 Right side , 5/5 Left side Deep tendon reflexes : Normal Knee Jerk. Normal Ankle Jerk Vertebral body tenderness over L5 Granger Test positive Lumbar facet Loading Test: positive Right / positive Left Range of motion of the lumbar spine Flexion 30 degrees, extension 10 degrees Straight Leg Raise test: Left/ Right positive at <30 degrees Alexandra test: positive right / positive left. Severe tenderness over the Sacroiliac joint on the Right / Left sides Gaenslen test: positive bilaterally Seated flexion test: positive bilaterally. Sacral spine : Severe tenderness over the Sacroiliac joint: right side / left side Range of motion: Flexion of the lumbar spine <60 degrees Range of motion: Extension of the lumbar spine <20 degrees Gaenslen's Test positive Alexadnra test: positive right side / left side Thigh Thrust Test Sacral Thrust Test Imaging: CT noncontrast of the lumbar spine from 01/30/23 reviewed Assessment/ Plan : Lumbar DDD, post laminectomy syndrome Will manage residual pain and may RTC on an as needed basis. All questions answered. I have spent greater than 30 minutes on patient care today. Dr Hernandez was available by phone for the evaluation of this patient. The time was used to review the medical records including relevant urine studies and Prescription his tory (MAPs), review of the available imaging, evaluation and examination of the patient, coordination of care with the medical staff and if applicable referring physicians, as well as creation of the medical record PQRS Narrative: Smoking Status Former smoker Hx Alcohol Use (MH) No Home Medications: Ambulatory Orders Docusate [Colace] 100 mg PO HS 08/20/18 Ezetimibe/Simvastatin [Ezetimibe-Simvastatin 10-80 mg] 1 each PO DAILY 08/20/18 Finasteride [Proscar] 5 mg PO DAILY 08/20/18 Fluticasone Nasal [place] [Flonase Nasal [place]] 1 spr EA NOSTRIL DAILY 08/20/18 Losartan/Hydrochlorothiazide [Losartan-Hctz 100-12.5 mg Tab] 1 each PO DAILY 12/31 Montelukast [Singulair] 10 mg PO DAILY 08/20/18 Multivit-Min/FA/Lycopen/Lutein [Centrum Silver Tablet] 1 each PO DAILY 08/20/18 Saw [place] 80 mg PO BID 08/20/18 Tamsulosin [Flomax] 0.4 mg PO DAILY 08/20/18 Apixaban [Eliquis] 5 mg PO BID 04/24/23 Calcium Carbonate [Calcium] 600 mg PO DAILY 05/01/23 Cyanocobalamin (Vitamin B-12) [Vitamin B-12] 1,000 mcg PO DAILY 05/01/23 Ferrous Sulfate [Feosol] 325 mg PO DAILY 05/01/23 Omeprazole/Sodium Bicarbonate [Omeprazole-Bicarb 20-1,100 Cap] 1 each PO DAILY 05/01/23 Controlled Substance Measures - Controlled Substance Measures Is patient prescribed a controlled substance at discharge?: No
== END ==
LOC: PNWHC3 09:20
PROVIDERS: ATTEND Specialist
DX: M51.36 Other intervertebral disc degeneration, lumbar region (principal); M96.1 Postlaminectomy syndrome, not elsewhere classified; Z87.891 Personal history of nicotine dependence; Z79.01 Long term (current) use of anticoagulants
CPT/HCPCS: 99211

== ENCOUNTER → 2024-01-29 | Outpatient (CLI) | payer OTHER ==
[2024-01-29 09:20] VITALS: BP 155/72; PULSE 89; RESP 16; TEMP 97.2
--- NOTE | 2024-01-29 13:56 | P.PAINPG ---
PQRS Measure Charge Sheet Comment: HISTORY OF PRESENT ILLNESS: A 89 yr old male presents today w severe and chronic LBP > 10 yrs secondary to post laminectomy syndrome for evaluation. Pt states pain level is provoked at 6 /10 in intensity, constant, localized in the L lower lumbar spine, predominantly axial, achy in character w occasional shooting pain towards the L hip, back of the LLE. Pain is provoked by standing up from a sitting position. Pain is alleviated by PT integrated w massage x 5 wks in Dec 2022, chiropractic treatments monthly since 2022 which he is currently in, heat, medications, topical, use of a cane for ambulatory assistance, repositioning and rest. Interventional procedures include L TFESI L5-S1 x2 Medications include Tyl, CBD oil REVIEW OF ORGAN SYSTEMS: CONSTITUTIONAL: No fevers or chills. No recent weight loss. NEUROLOGICAL: + numbness and tingling along the distal extremities. No seizure disorders or headaches. MUSCULOSKELETAL: + pain PSYCHIATRIC: Denies current depression or suicidal thoughts. Physical Examinations : Constitutional : Cooperative , not in acute distress . Neurologic : Cranial nerve II to XII intact. No focal neurological deficits. Psychiatric : alert & oriented x 3. Matching mood & appropriate affect. Judgment & insight intact. Musculoskeletal : Cervical Spine Motor strength in the deltoid and biceps: Normal right side. Normal Left side Motor strength biceps and the wrist extensors: Normal right side . Normal left side Motor strength in the triceps muscle: Normal right side. Normal left side Deep tendon reflexes: Normal at the biceps. Normal at Brachioradialis. Normal at triceps Vertebral body tenderness to deep palpation over Cervical facet loading test: positive bilaterally Spurling test: positive bilaterally Neck distraction test: positive bilaterally Gia sign: positive bilaterally Lumbar spine Motor strength lower extremities ,thigh and legs 5/5 Right side , 5/5 Left side Deep tendon reflexes : Normal Knee Jerk. Normal Ankle Jerk Vertebral body tenderness over L5 Granger Test positive Lumbar facet Loading Test: positive Right / positive Left Range of motion of the lumbar spine Flexion 30 degrees, extension 10 degrees Straight Leg Raise test: Left/ Right positive at <30 degrees Alexandra test: positive right / positive left. Severe tenderness over the Sacroiliac joint on the Right / Left sides Gaenslen test: positive bilaterally Seated flexion test: positive bilaterally. Sacral spine : Severe tenderness over the Sacroiliac joint: right side / left side Range of motion: Flexion of the lumbar spine <60 degrees Range of motion: Extension of the lumbar spine <20 degrees Gaenslen's Test positive Alexandra test: positive right side / left side Thigh Thrust Test Sacral Thrust Test Imaging: CT noncontrast of the lumbar spine from 01/30/23 reviewed Assessment/ Plan : Lumbar radiculopathy, post laminectomy syndrome Recommendation of L TFESI L5-S1 #3. Risks, benefits of procedure discussed and pt verbalized understanding. Protocol for discontinuation/ continuation of medications jerad procedure discussed. All questions answered. I have spent greater than 30 minutes on patient care today. Dr Hernandez was available by phone for the evaluation of this patient. The time was used to review the medical records including relevant urine studies and Prescription history (MAPs), review of the available imaging, evaluation and examination of the patient, coordination of care with the medical staff and if applicable r eferring physicians, as well as creation of the medical record PQRS Narrative: Smoking Status Former smoker Hx Alcohol Use (MH) No Home Medications: Ambulatory Orders Docusate [Colace] 100 mg PO HS 08/20/18 Ezetimibe/Simvastatin [Ezetimibe-Simvastatin 10-80 mg] 1 each PO DAILY 08/20/18 Finasteride [Proscar] 5 mg PO DAILY 08/20/18 Fluticasone Nasal [place] [Flonase Nasal [place]] 1 spr EA NOSTRIL DAILY 08/20/18 Losartan/Hydrochlorothiazide [Losartan-Hctz 100-12.5 mg Tab] 1 each PO DAILY 08/20/18 Montelukast [Singulair] 10 mg PO DAILY 08/20/18 Multivit-Min/FA/Lycopen/Lutein [Centrum Silver Tablet] 1 each PO DAILY 08/20/18 Saw [place] 80 mg PO BID 08/20/18 Tamsulosin [Flomax] 0.4 mg PO DAILY 08/20/18 Apixaban [Eliquis] 5 mg PO BID 04/24/23 Calcium Carbonate [Calcium] 600 mg PO DAILY 05/01/23 Cyanocobalamin (Vitamin B-12) [Vitamin B-12] 1,000 mcg PO DAILY 05/01/23 Ferrous Sulfate [Feosol] 325 mg PO DAILY 05/01/23 Omeprazole/Sodium Bicarbonate [Omeprazole-Bicarb 20-1,100 Cap] 1 each PO DAILY 05/01/23 Controlled Substance Measures - Controlled Substance Measures Is patient prescribed a controlled substance at discharge?: No
== END ==
LOC: PNWHC3 08:28
PROVIDERS: ATTEND Specialist
DX: M54.16 Radiculopathy, lumbar region
CPT/HCPCS: 99211

== ENCOUNTER 2024-02-12 12:15 | Day surgery (SDC) | payer OTHER ==
[2024-02-12 13:37] VITALS: TEMP 97.1
[2024-02-12] MEDS ORDERED: LACTATED RINGERS 1,000 ML IV SCH (13:38)
[2024-02-12] MEDS ORDERED: methylPREDNISolone ACETATE 40 MG/ML 1 ML VIAL ONE (13:57)
[2024-02-12] MEDS ORDERED: IOPAMIDOL M200 10 ML VIAL ONE (13:57)
--- NOTE | 2024-02-12 14:04 | P.PCN ---
Date of Procedure: 02/12/24 Procedure(s) Performed: PREOPERATIVE DIAGNOSIS: 1-Lumbar radiculopathy . 2-lumbar degenerative disc disease. 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 2-lumbar degenerative disc disease. 3-lumbar spondylosis with facet arthropathy without myelopathy PROCEDURE 1. Transforaminal epidural steroid injection under fluoroscopic guidance at left L5-S1 level. (Fluoroscopy images stored on file in the radiology Department ) 2. Lumbar epidurogram . ANESTHESIA: Local with 1% lidocaine 3 ml. EBL: Minimal PROCEDURE INDICATION: The patient with low back pain and radiculopathy symptoms unresponsive to conservative treatment. PROCEDURE DESCRIPTION / TECHNIQUE: The patient was seen and identified in the preoperative area. Risks, benefits, complications, and alternatives were discussed with the patient. The patient agreed to proceed with the procedure and signed the consent. IV was started, and vital signs were stable. Patient was taken to the OR and time out was completed. The patient was placed in the prone position on procedure table and a pillow was placed under the abdomen to reduce lumbar lordosis. The lumbosacral area was prepped and draped in the usual sterile fashion. Critical pause was taken. Vital signs were closely monitored during the procedure. Using oblique fluoroscopy, the chin of the ``Bo dog at left L5-S1 level was identified, and the skin and deeper tissues just below was localized with 1% lidocaine. Subsequently, a 22-gauge 3.5-inch spinal needle was advanced under a tunneled view fluoroscopic guidance just underneath the chin of the ``Bo dog at the left L5-S1 Under lateral fluoroscopy, the needle was then advanced to the posterior border of the interforaminal space. After negative aspiration of CSF and blood and with no paresthesias, 1 mL Isovue 200 contrast dye was injected excellent epidurogram and outlining of the nerve root Subsequently, 3 mL of block solution containing 40 mg Depo-Medrol and 2 mL of 0.9% normal saline PF was injected. Needle was removed . At the end of the procedure, skin was cleansed, and bandages were applied. COMPLICATIONS:none DISPOSITION / PLANS: The patient was placed in a supine position and transferred to the recovery area in a stable condition for observation. There was no evidence of lower extremity motor or sensory deficit after the procedure. Patient was discharged from the recovery room after meeting discharge criteria. Home discharge instructions were given to the patient by the staff. The patient was reexamined prior to discharge.
--- NOTE | 2024-02-12 14:22 | FL ---
Intraoperative/procedural fluoroscopic services were provided for transforaminal injection. Total flu oroscopy time is 15.5 seconds with a total of 2 submitted images to PACS. Total DAP 0.35869 mGym2. P lease see the operative note for further details. [facility], , 02/12/2024 2:20 PM
[2024-02-12 14:30] VITALS: BP 128/76; PULSE 65; RESP 16
== END 2024-02-12 14:35 | disposition home or self-care (01) ==
LOC: ORPAIN 12:15
PROVIDERS: ATTEND Specialist
DX: M47.26 Other spondylosis with radiculopathy, lumbar region (principal); M51.16 Intervertebral disc disorders with radiculopathy, lumbar region
CPT/HCPCS: 64483; Q9966; J1010

== ENCOUNTER → 2024-02-25 | Outpatient (CLI) | payer OTHER ==
[2024-02-25 08:36] VITALS: BP 134/68; PULSE 64; RESP 16; TEMP 96.9
--- NOTE | 2024-02-25 16:03 | P.PAINPG ---
PQRS Measure Charge Sheet Comment: HISTORY OF PRESENT ILLNESS: A 89 yr old male presents today w severe and chronic LBP > 10 yrs secondary to post laminectomy syndrome for evaluation s/p L TFESI L5-S1 #3. Pt states he experienced 80 % pain relief x 2 wks s/p procedure. Pt states pain level is provoked at 3 /10 in intensity, constant, localized in the L lower lumbar spine, predominantly axial, achy in character w occasional shooting pain towards the L hip, back of the LLE. Pain is provoked by standing up from a sitting position. Pain is alleviated by PT integrated w massage x 5 wks in Dec 2022, chiropractic treatments monthly since 2022 which he is currently in, heat, medications, topical, use of a cane for ambulatory assistance, repositioning and rest. Interventional procedures include L TFESI L5-S1 x3 Medications include Tyl, CBD oil REVIEW OF ORGAN SYSTEMS: CONSTITUTIONAL: No fevers or chills. No recent weight loss. NEUROLOGICAL: + numbness and tingling along the distal extremities. No seizure disorders or headaches. MUSCULOSKELETAL: + pain PSYCHIATRIC: Denies current depression or suicidal thoughts. Physical Examinations : Constitutional : Cooperative , not in acute distress . Neurologic : Cranial nerve II to XII intact. No focal neurological deficits. Psychiatric : alert & oriented x 3. Matching mood & appropriate affect. Judgment & insight intact. Musculoskeletal : Cervical Spine Motor strength in the deltoid and biceps: Normal right side. Normal Left side Motor strength biceps and the wrist extensors: Normal right side . Normal left side Motor strength in the triceps muscle: Normal right side. Normal left side Deep tendon reflexes: Normal at the biceps. Normal at Brachioradialis. Normal at triceps Vertebral body tenderness to deep palpation over Cervical facet loading test: positive bilaterally Spurling test: positive bilaterally Neck distraction test: positive bilaterally Gia sign: positive bilaterally Lumbar spine Motor strength lower extremities ,thigh and legs 5/5 Right side , 5/5 Left side Deep tendon reflexes : Normal Knee Jerk. Normal Ankle Jerk Vertebral body tenderness over L5 Granger Test positive Lumbar facet Loading Test: positive Right / positive Left Range of motion of the lumbar spine Flexion 30 degrees, extension 10 degrees Straight Leg Raise test: Left/ Right positive at <30 degrees Alexandra test: positive right / positive left. Severe tenderness over the Sacroiliac joint on the Right / Left sides Gaenslen test: positive bilaterally Seated flexion test: positive bilaterally. Sacral spine : Severe tenderness over the Sacroiliac joint: right side / left side Range of motion: Flexion of the lumbar spine <60 degrees Range of motion: Extension of the lumbar spine <20 degrees Gaenslen's Test positive Alexandra test: positive right side / left side Thigh Thrust Test Sacral Thrust Test Imaging: CT non contrast of the lumbar spine from 01/30/23 reviewed Assessment/ Plan : Lumbar radiculopathy, post laminectomy syndrome Will manage residual pain and may RTC on an as needed basis. All questions answered. I have spent greater than 30 minutes on patient care today. Dr Hernandez was available by phone for the evaluation of this patient. The time was used to review the medical records including relevant urine studies and Prescription history (MAPs), review of the available imaging, evaluation and examination of the patient, coordination of care with the medical staff and if applicable referring physicians, as well as creation of the medical record PQRS Narrative: Smoking Status Former smoker Hx Alcohol Use (MH) No Home Medications: Ambulatory Orders Docusate [Colace] 100 mg PO HS 08/20/18 Ezetimibe/Simvastatin [Ezetimibe-Simvastatin 10-80 mg] 1 each PO DAILY 08/20/18 Finasteride [Proscar] 5 mg PO DAILY 08/20/18 Fluticasone Nasal [place] [Flonase Nasal [place]] 1 spr EA NOSTRIL DAILY 08/20/18 Losartan/Hydrochlorothiazide [Losartan-Hctz 100-12.5 mg Tab] 1 each PO DAILY 08/20/18 Montelukast [Singulair] 10 mg PO DAILY 08/20/18 Multivit-Min/FA/Lycopen/Lutein [Centrum Silver Tablet] 1 each PO DAILY 08/20/18 Saw [place] 80 mg PO BID 08/20/18 Tamsulosin [Flomax] 0.4 mg PO DAILY 08/20/18 Apixaban [Eliquis] 5 mg PO BID 04/24/23 Calcium Carbonate [Calcium] 600 mg PO DAILY 05/01/23 Cyanocobalamin (Vitamin B-12) [Vitamin B-12] 1,000 mcg PO DAILY 05/01/23 Ferrous Sulfate [Feosol] 325 mg PO DAILY 05/01/23 Omeprazole/Sodium Bicarbonate [Omeprazole-Bicarb 20-1,100 Cap] 1 each PO DAILY 05/01/23 Controlled Substance Measures - Controlled Substance Measures Is patient prescribed a controlled substance at discharge?: No
== END ==
LOC: PNWHC3 08:19
PROVIDERS: ATTEND Specialist
DX: M96.1 Postlaminectomy syndrome, not elsewhere classified (principal); M54.16 Radiculopathy, lumbar region; Z87.891 Personal history of nicotine dependence
CPT/HCPCS: 99211

== ENCOUNTER → 2024-06-10 | Outpatient (CLI) | payer OTHER ==
[2024-06-10 08:06] VITALS: BP 155/69; PULSE 61; RESP 16; TEMP 97.1
--- NOTE | 2024-06-10 14:53 | P.PAINPG ---
PQRS Measure Charge Sheet Comment: HISTORY OF PRESENT ILLNESS: A 89 yr old male presents today w severe and chronic LBP > 10 yrs secondary to post laminectomy syndrome for evaluation. Pt states pain level is provoked at 5-7 /10 in intensity, intermittent, localized in the L lower lumbar spine, predominantly axial, achy in character w occasional shooting pain towards the L back, hip, thigh and L calf. Pain is provoked by standing up from a sitting position. Pain is alleviated by PT integrated w massage x 5 wks in Dec 2022, chiropractic treatments monthly since 2022 which he is currently in, heat, medications, topical, use of a cane for ambulatory assistance, repositioning and rest. Interventional procedures include L TFESI L5-S1 x3 Medications include Tyl, CBD oil REVIEW OF ORGAN SYSTEMS: CONSTITUTIONAL: No fevers or chills. No recent weight loss. NEUROLOGICAL: + numbness and tingling along the distal extremities. No seizure disorders or headaches. MUSCULOSKELETAL: + pain PSYCHIATRIC: Denies current depression or suicidal thoughts. Physical Examinations : Constitutional : Cooperative , not in acute distress . Neurologic : Cranial nerve II to XII intact. No focal neurological deficits. Psychiatric : alert & oriented x 3. Matching mood & appropriate affect. Judgment & insight intact. Musculoskeletal : Cervical Spine Motor strength in the deltoid and biceps: Normal right side. Normal Left side Motor strength biceps and the wrist extensors: Normal right side . Normal left side Motor strength in the triceps muscle: Normal right side. Normal left side Deep tendon reflexes: Normal at the biceps. Normal at Brachioradialis. Normal at triceps Vertebral body tenderness to deep palpation over Cervical facet loading test: positive bilaterally Spurling test: positive bilaterally Neck distraction test: positive bilaterally Gia sign: positive bilaterally Lumbar spine Motor strength lower extremities ,thigh and legs 5/5 Right side , 5/5 Left side Deep tendon reflexes : Normal Knee Jerk. Normal Ankle Jerk Vertebral body tenderness over L5 Granger Test positive Lumbar facet Loading Test: positive Right / positive Left Range of motion of the lumbar spine Flexion 30 degrees, extension 10 degrees Straight Leg Raise test: Left/ Right positive at <30 degrees Alexandra test: positive right / positive left. Severe tenderness over the Sacroiliac joint on the Right / Left sides Gaenslen test: positive bilaterally Seated flexion test: positive bilaterally. Sacral spine : Severe tenderness over the Sacroiliac joint: right side / left side Range of motion: Flexion of the lumbar spine <60 degrees Range of motion: Extension of the lumbar spine <20 degrees Gaenslen's Test positive Alexandra test: positive right side / left side Thigh Thrust Test Sacral Thrust Test Imaging: CT non contrast of the lumbar spine from 01/30/23 reviewed Assessment/ Plan : Lumbar radiculopathy, post laminectomy syndrome Recommendation of L TFESI L4-L5/ L5-S1 #4. Risks, benefits of procedure discussed and patient verbalized understanding. Protocol for discontinuation/continuation of medication surrounding procedure discussed. All questions answered. I have spent greater than 30 minutes on patient care today. Dr Hernandez was available by phone for the evaluation of this patient. The time was used to review the medical records including relevant urine studies and Prescription history (MAPs), review of the available imaging, evaluation and examination of the patient, coordination of care with the medical staff and if applicable referring physicians, as well as creation of the medical record PQRS Narrative: Smoking Status Former smoker Hx Alcohol Use (MH) No Home Medications: Ambulatory Orders Docusate [Colace] 100 mg PO HS 08/20/18 Ezetimibe/Simvastatin [Ezetimibe-Simvastatin 10-80 mg] 1 each PO DAILY 08/20/18 Finasteride [Proscar] 5 mg PO DAILY 08/20/18 Fluticasone Nasal [place] [Flonase Nasal [place]] 1 spr EA NOSTRIL DAILY 08/20/18 Losartan/Hydrochlorothiazide [Losartan-Hctz 100-12.5 mg Tab] 1 each PO DAILY 08/20/18 Montelukast [Singulair] 10 mg PO DAILY 08/20/18 Multivit-Min/FA/Lycopen/Lutein [Centrum Silver Tablet] 1 each PO DAILY 08/20/18 Saw [place] 80 mg PO BID 08/20/18 Tamsulosin [Flomax] 0.4 mg PO DAILY 08/20/18 Apixaban [Eliquis] 5 mg PO BID 04/24/23 Calcium Carbonate [Calcium] 600 mg PO DAILY 05/01/23 Cyanocobalamin (Vitamin B-12) [Vitamin B-12] 1,000 mcg PO DAILY 05/01/23 Ferrous Sulfate [Feosol] 325 mg PO DAILY 05/01/23 Omeprazole/Sodium Bicarbonate [Omeprazole-Bicarb 20-1,100 Cap] 1 each PO DAILY 05/01/23 Controlled Substance Measures - Controlled Substance Measures Is patient prescribed a controlled substance at discharge?: No
== END ==
LOC: PNWHC3 07:02
PROVIDERS: ATTEND Specialist
DX: M54.16 Radiculopathy, lumbar region (principal); M96.1 Postlaminectomy syndrome, not elsewhere classified; Z87.891 Personal history of nicotine dependence
CPT/HCPCS: 99211

== ENCOUNTER 2024-07-06 11:24 | Day surgery (SDC) | payer OTHER ==
[~2024-07-06 11:24] MED LIST changes: -DEXAMETHASONE SOD PHOSPHATE 10 MG/ML 1 ML VIAL ONE; -IOPAMIDOL M300 15ML VIAL ONE; -ROPIVACAINE 5MG/ML 20ML VIAL ONE
[2024-07-06 12:11] VITALS: TEMP 96.9
[2024-07-06] MEDS ORDERED: methylPREDNISolone ACETATE 40 MG/ML 1 ML VIAL ONE (13:11)
[2024-07-06] MEDS ORDERED: IOPAMIDOL M200 10 ML VIAL ONE (13:11)
--- NOTE | 2024-07-06 13:24 | P.PCN ---
Date of Procedure: 07/06/24 Procedure(s) Performed: PREOPERATIVE DIAGNOSIS: 1-Lumbar radiculopathy . 2-lumbar degenerative disc disease. 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 2-lumbar degenerative disc disease. 3-lumbar spondylosis with facet arthropathy without myelopathy PROCEDURE 1. Transforaminal epidural steroid injection under fluoroscopic guidance at left L4-5 ,and Left L5-S1 level. (Fluoroscopy images stored on file in the radiology Department ) 2. Lumbar epidurogram . ANESTHESIA: Local with 1% lidocaine 3 ml. EBL: Minimal PROCEDURE INDICATION: The patient with low back pain and radiculopathy symptoms unresponsive to conservative treatment. PROCEDURE DESCRIPTION / TECHNIQUE: The patient was seen and identified in the preoperative area. Risks, benefits, complications, and alternatives were discussed with the patient. The patient agreed to proceed with the procedure and signed the consent. IV was started, and vital signs were stable. Patient was taken to the OR and time out was completed. The patient was placed in the prone position on procedure table and a pillow was placed under the abdomen to reduce lumbar lordosis. The lumbosacral area was prepped and draped in the usual sterile fashion. Critical pause was taken. Vital signs were closely monitored during the procedure. Using oblique fluoroscopy, the chin of the ``Bo dog at left L5-S1 level was identified, and the skin and deeper tissues just below was localized with 1% lidocaine. Subsequently, a 23-gauge 3.5-inch spinal needle was advanced under a tunneled view fluoroscopic guidance just underneath the chin of the `[place] dog at the left L5-S1 Under lateral fluoroscopy, the needle was then advanced to the posterior border of the interforaminal space. After negative aspiration of CSF and blood and with no paresthesias, 1 mL Isovue 200 contrast dye was injected excellent epidurogram and outlining of the nerve root Subsequently, 3 mL of block solution containing 20 mg Depo-Medrol and 2 mL of 0.9% normal saline PF was injected. Needle was removed, same procedure was repeated for the left side L4-5 . At the end of the procedure, skin was cleansed, and bandages were applied. COMPLICATIONS:none DISPOSITION / PLANS: The patient was placed in a supine position and transferred to the recovery area in a stable condition for observation. There was no evidence of lower extremity motor or sensory deficit after the procedure. Patient was discharged from the recovery room after meeting discharge criteria. Home discharge instructions were given to the patient by the staff. The patient was reexamined prior to discharge.
--- NOTE | 2024-07-06 13:33 | FL ---
EXAMINATION TYPE: FL guided pain mgmt statistic DATE OF EXAM: 07/06/2024 CLINICAL INDICATION: Male, 89 years old with history of PAIN; PHH, pain TECHNIQUE: Fluoroscopy. COMPARISON: None. FINDINGS: Fluoroscopic guidance was provided during pain relief procedure performed by Dr. Hernandez . A total of 8.8 seconds of fluoroscopic time was utilized during the procedure and one image was ac quired. Image acquired shows needle localization in lower lumbar spine. Degeneration changes of the spine. Total DAP: 0.22685 mGym2. IMPRESSION: As Above. [facility], , 07/06/2024 1:30 PM
[2024-07-06 13:44] VITALS: BP 137/78; PULSE 61; RESP 16
== END 2024-07-06 13:51 | disposition home or self-care (01) ==
LOC: ORPAIN 11:24
PROVIDERS: ATTEND Specialist
DX: M47.26 Other spondylosis with radiculopathy, lumbar region (principal); M51.16 Intervertebral disc disorders with radiculopathy, lumbar region; I48.91 Unspecified atrial fibrillation; Z79.01 Long term (current) use of anticoagulants
CPT/HCPCS: 64483; 64484; Q9966; J1010

== ENCOUNTER → 2024-07-26 | Outpatient (CLI) | payer OTHER ==
[2024-07-26 08:01] VITALS: BP 139/74
--- NOTE | 2024-07-26 14:12 | P.PAINPG ---
PQRS Measure Charge Sheet Comment: HISTORY OF PRESENT ILLNESS: A 89 yr old male presents today w severe and chronic LBP > 10 yrs secondary to post laminectomy syndrome for evaluation s/p L TFESI L4-L5/ L5-S1 #4. Pt states he experienced 50 % pain relief x 2-3 wks s/p procedure. Pt states pain level is provoked at 5 /10 in intensity, intermittent, localized in the L lower lumbar spine, predominantly axial, achy in character w occasional shooting pain towards the L back, hip, thigh and L calf. Pain is provoked by standing up from a sitting position. Pain is alleviated by PT integrated w massage x 5 wks in Dec 2022, chiropractic treatments monthly since 2022 which he is currently in, heat, medications, topical, use of a cane for ambulatory assistance, repositioning and rest. Interventional procedures include L TFESI L5-S1 x3, L TFESI L4-L5/ L5-S1 x1 Medications include Tyl, CBD oil REVIEW OF ORGAN SYSTEMS: CONSTITUTIONAL: No fevers or chills. No recent weight loss. NEUROLOGICAL: + numbness and tingling along the distal extremities. No seizure disorders or headaches. MUSCULOSKELETAL: + pain PSYCHIATRIC: Denies current depression or suicidal thoughts. Physical Examinations : Constitutional : Cooperative , not in acute distress . Neurologic : Cranial nerve II to XII intact. No focal neurological deficits. Psychiatric : alert & oriented x 3. Matching mood & appropriate affect. Judgment & insight intact. Musculoskeletal : Cervical Spine Motor strength in the deltoid and biceps: Normal right side. Normal Left side Motor strength biceps and the wrist extensors: Normal right side . Normal left side Motor strength in the triceps muscle: Normal right side. Normal left side Deep tendon reflexes: Normal at the biceps. Normal at Brachioradialis. Normal at triceps Vertebral body tenderness to deep palpation over Cervical facet loading test: positive bilaterally Spurling test: positive bilaterally Neck distraction test: positive bilaterally Gia sign: positive bilaterally Lumbar spine Motor strength lower extremities ,thigh and legs 5/5 Right side , 5/5 Left side Deep tendon reflexes : Normal Knee Jerk. Normal Ankle Jerk Vertebral body tenderness over L5 Granger Test positive Lumbar facet Loading Test: positive Right / positive Left Range of motion of the lumbar spine Fl exion 30 degrees, extension 10 degrees Straight Leg Raise test: Left/ Right positive at <30 degrees Alexandra test: positive right / positive left. Severe tenderness over the Sacroiliac joint on the Right / Left sides Gaenslen test: positive bilaterally Seated flexion test: positive bilaterally. Sacral spine : Severe tenderness over the Sacroiliac joint: right side / left side Range of motion: Flexion of the lumbar spine <60 degrees Range of motion: Extension of the lumbar spine <20 degrees Gaenslen's Test positive Alexandra test: positive right side / left side Thigh Thrust Test Sacral Thrust Test Imaging: CT non contrast of the lumbar spine from 01/30/23 reviewed Assessment/ Plan : Lumbar radiculopathy, post laminectomy syndrome Will manage residual pain and may RTC on an as-needed basis. All questions answered. I have spent greater than 30 minutes on patient care today. Dr Hernandez was available by phone for the evaluation of this patient. The time was used to review the medical records including relevant urine studies and Prescription history (MAPs), review of the available imaging, evaluation and examination of the patient, coordination of care with the medical staff and if applicable referring physicians, as well as creation of the medical record PQRS Narrative: Smoking Status Former smoker Hx Alcohol Use (MH) No Home Medications: Ambulatory Orders Docusate [Colace] 100 mg PO HS 08/20/18 Ezetimibe/Simvastatin [Ezetimibe-Simvastatin 10-80 mg] 1 each PO DAILY 08/20/18 Finasteride [Proscar] 5 mg PO DAILY 08/20/18 Fluticasone Nasal [place] [Flonase Nasal [place]] 1 spr EA NOSTRIL DAILY 08/20/18 Montelukast [Singulair] 10 mg PO DAILY 08/20/18 Multivit-Min/FA/Lycopen/Lutein [Centrum Silver Tablet] 1 each PO DAILY 08/20/18 Saw [place] 80 mg PO BID 08/20/18 Tamsulosin [Flomax] 0.4 mg PO DAILY 08/20/18 Apixaban [Eliquis] 5 mg PO BID 04/24/23 Calcium Carbonate [Calcium] 600 mg PO DAILY 05/01/23 Cyanocobalamin (Vitamin B-12) [Vitamin B-12] 1,000 mcg PO DAILY 05/01/23 Ferrous Sulfate [Feosol] 325 mg PO DAILY 05/01/23 Losartan Potassium 100 mg PO DAILY 07/02/24 Omeprazole [PriLOSEC] 20 mg PO AC-BRKFST 07/02/24 Controlled Substance Measures - Controlled Substance Measures Is patient prescribed a controlled substance at discharge?: No
== END ==
LOC: PNWHC3 07:22
PROVIDERS: ATTEND Specialist
DX: M54.16 Radiculopathy, lumbar region (principal); M96.1 Postlaminectomy syndrome, not elsewhere classified; Z87.891 Personal history of nicotine dependence
CPT/HCPCS: 99212

== ENCOUNTER → 2024-11-01 | Outpatient (CLI) | payer OTHER ==
[2024-11-01 07:56] VITALS: BP 155/70; PULSE 53; RESP 16; TEMP 97.2
--- NOTE | 2024-11-01 16:40 | P.PAINPG ---
Objective - Vital Signs Vital signs: Intake & Output 10/31/24 11/01/24 11/01/24 18:59 06:59 18:59 Weight 74.843 kg PQRS Measure Charge Sheet Comment: HISTORY OF PRESENT ILLNESS: A 89 yr old male presents today w severe and chronic LBP > 10 yrs secondary to post laminectomy syndrome for evaluation. Pt states pain level is provoked at 8 /10 in intensity, intermittent, localized in the L lower lumbar spine, predominantly axial, achy in character w occasional shooting pain towards the back of the calves and feet. Pain is provoked by standing up from a sitting position. Pain is alleviated by PT integrated w massage x 5 wks in Dec 2022, chiropractic treatments monthly since 2022 which he is currently in, heat, medications, topical, use of a cane/ walker for ambulatory assistance, repositioning and rest. Interventional procedures include L TFESI L5-S1 x3, L TFESI L4-L5/ L5-S1 x1 Medications include Tyl, CBD oil REVIEW OF ORGAN SYSTEMS: CONSTITUTIONAL: No fevers or chills. No recent weight loss. NEUROLOGICAL: + numbness and tingling along the distal extremities. No seizure disorders or headaches. MUSCULOSKELETAL: + pain PSYCHIATRIC: Denies current depression or suicidal thoughts. Physical Examinations : Constitutional : Cooperative , not in acute distress . Neurologic : Cranial nerve II to XII intact. No focal neurological deficits. Psychiatric : alert & oriented x 3. Matching mood & appropriate affect. Judgment & insight intact. Musculoskeletal : Cervical Spine Motor strength in the deltoid and biceps: Normal right side. Normal Left side Motor strength biceps and the wrist extensors: Normal right side . Normal left side Motor strength in the triceps muscle: Normal right side. Normal left side Deep tendon reflexes: Normal at the biceps. Normal at Brachioradialis. Normal at triceps Vertebral body tenderness to deep palpation over Cervical facet loading test: positive bilaterally Spurling test: positive bilaterally Neck distraction test: positive tatianna aterally Gia sign: positive bilaterally Lumbar spine Motor strength lower extremities ,thigh and legs 5/5 Right side , 5/5 Left side Deep tendon reflexes : Normal Knee Jerk. Normal Ankle Jerk Vertebral body tenderness over L5 Granger Test positive Lumbar facet Loading Test: positive Right / positive Left Range of motion of the lumbar spine Flexion 30 degrees, extension 10 degrees Straight Leg Raise test: Left/ Right positive at <30 degrees Alexandra test: positive right / positive left. Severe tenderness over the Sacroiliac joint on the Right / Left sides Gaenslen test: positive bilaterally Seated flexion test: positive bilaterally. Sacral spine : Severe tenderness over the Sacroiliac joint: right side / left side Range of motion: Flexion of the lumbar spine <60 degrees Range of motion: Extension of the lumbar spine <20 degrees Gaenslen's Test positive Alexandra test: positive right side / left side Thigh Thrust Test Sacral Thrust Test Imaging: CT non contrast of the lumbar spine from 01/30/23 reviewed Assessment/ Plan : Lumbar radiculopathy, post laminectomy syndrome Recommendation of BL TFESI L5-S1 #3. Risks, benefits of procedure discussed and pt verbalized understanding. Protocol for discontinuation/ continuation of medications jerad procedure discussed. All questions answered. I have spent greater than 30 minutes on patient care today. Dr Hernandez was available by phone for the evaluation of this patient. The time was used to review the medical records including relevant urine studies and Prescription history (MAPs), review of the available imaging, evaluation and examination of the patient, coordination of care with the medical staff and if applicable referring physicians, as well as creation of the medical record - Pain Location Bilateral Lower Back Non-Pharmacological Interventions: Exercise, Heat, Home Exercise, Physical Therapy, Position/Reposition, Stretching Pharmacological Interventions: Epidural, PRN Medication, Topical Medication PQRS Narrative: Smoking Status Former smoker Hx Alcohol Use (MH) No Home Medications: Ambulatory Orders Docusate [Colace] 100 mg PO HS 08/20/18 Ezetimibe/Simvastatin [Ezetimibe-Simvastatin 10-80 mg] 1 each PO DAILY 08/20/18 Finasteride [Proscar] 5 mg PO DAILY 08/20/18 Fluticasone Nasal [place] [Flonase Nasal [place]] 1 spr EA NOSTRIL DAILY 08/20/18 Montelukast [Singulair] 10 mg PO DAILY 08/20/18 Multivit-Min/FA/Lycopen/Lutein [Centrum Silver Tablet] 1 each PO DAILY 08/20/18 Saw [place] 80 mg PO BID 08/20/18 Tamsulosin [Flomax] 0.4 mg PO DAILY 08/20/18 Apixaban [Eliquis] 5 mg PO BID 04/24/23 Calcium Carbonate [Calcium] 600 mg PO DAILY 05/01/23 Cyanocobalamin (Vitamin B-12) [Vitamin B-12] 1,000 mcg PO DAILY 05/01/23 Ferrous Sulfate [Feosol] 325 mg PO DAILY 05/01/23 Losartan Potassium 100 mg PO DAILY 07/02/24 Omeprazole [PriLOSEC] 20 mg PO -BRKFST 07/02/24 Controlled Substance Measures - Controlled Substance Measures Is patient prescribed a controlled substance at discharge?: No
== END ==
LOC: PNWHC3 07:09
PROVIDERS: ATTEND Anesthesiology
DX: M54.16 Radiculopathy, lumbar region (principal); M96.1 Postlaminectomy syndrome, not elsewhere classified; Z87.891 Personal history of nicotine dependence
CPT/HCPCS: 99211

== ENCOUNTER 2024-11-09 11:02 | Day surgery (SDC) | payer OTHER ==
[2024-11-09] MEDS ORDERED: LACTATED RINGERS 1,000 ML IV SCH (11:30)
[2024-11-09 11:46] VITALS: TEMP 97
[2024-11-09] MEDS ORDERED: DEXAMETHASONE SOD PHOSPHATE 10 MG/ML 1 ML VIAL ONE (12:22)
[2024-11-09] MEDS ORDERED: IOPAMIDOL M300 15ML VIAL ONE (12:22)
[2024-11-09 12:58] VITALS: RESP 16
[2024-11-09 13:18] VITALS: BP 148/74; PULSE 59
--- NOTE | 2024-11-09 13:21 | P.PCN ---
Description of Procedure: PREOPERATIVE DIAGNOSIS: 1-Lumbar radiculopathy . 2-lumbar degenerative disc disease. 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 2-lumbar degenerative disc disease. 3-lumbar spondylosis with facet arthropathy without myelopathy PROCEDURE 1. Transforaminal epidural steroid injection under fluoroscopic guidance at BILATER[place] L5-S1 level. (Fluoroscopy images stored on file in the radiology Department ) 2. Lumbar epidurogram . ANESTHESIA: Local with 1% lidocaine 5 ml. subcutaneously. Continuous pulse ox, EKG, blood pressure and verbal communication was maintained with the patient. EBL: Minimal PROCEDURE INDICATION: The patient with low back pain and radiculopathy symptoms unresponsive to conservative treatment. The patient was seen and identified in the preoperative area. Risks, benefits, complications, and alternatives were discussed with the patient. The patient agreed to proceed with the procedure and signed the consent. IV was started, and vital signs were stable. PROCEDURE DESCRIPTION / TECHNIQUE: After getting consent, patient was taken to the OR and time out was completed. The patient was placed in the prone position on procedure table and a pillow was placed under the abdomen to reduce lumbar lordosis. The lumbosacral area w as prepped and draped in the usual sterile fashion. Critical pause was taken. After injecting 5 mL of plain 1% lidocaine subcutaneously, under oblique view of the fluoroscope, a 22-gauge spinal needle was introduced under the tunnel view of the fluoroscope on the RIGHT side and the needle was advanced so that the tip of the needle was at the posterior inferior quadrant of the intervertebral fora men at the lateral view of the fluoroscope and in the lateral third of the facet column in the AP view of the fluoroscope. Negative CSF, negative blood, negative paresthesia. After needle position confirmation by AP and cross table lateral view, 3 mL of Isovue-M 200 contrast was injected under continuous fluoroscope. No contrast was noted in the intrathecal or intravascular space. The epidurogram was noted. Again after repeated negative aspiration 2.5 mL solution was injected which consists 1 mL of normal saline mixed with 1.5 mL of 15 mg dexamethasone. Needle was removed . Same procedure was repeated at the LEFT side at same level , using contrast under continuous fluoroscopy and using same amount of dexamethasone. At the end of the procedure, skin was cleansed, and bandages were applied. DISPOSITION / PLANS: No complication. The patient tolerated the procedure well. The patient was placed in a supine position and transferred to the recovery area in a stable condition for observation. There was no evidence of lower extremity motor or sensory deficit after the procedure. Patient was discharged from the recovery room after meeting discharge criteria. Home discharge instruc tions were given to the patient by the staff. The patient was reexamined prior to discharge.
--- NOTE | 2024-11-09 13:33 | FL ---
EXAMINATION TYPE: FL guided pain mgmt statistic DATE OF EXAM: 11/09/2024 HISTORY: Fluoroscopy time Total dose area product (DAP) in uGy*m?, mGy*cm? (or similar): 0.83357 IMPRESSION: 1. Fluoroscopy time. [facility], , 11/09/2024 1:31 PM
== END 2024-11-09 13:25 | disposition home or self-care (01) ==
LOC: ORPAIN 11:02
PROVIDERS: ATTEND Pain Medicine Interventional Pain Medicine
DX: M47.26 Other spondylosis with radiculopathy, lumbar region (principal); M51.16 Intervertebral disc disorders with radiculopathy, lumbar region; Z79.1 Long term (current) use of non-steroidal anti-inflammatories (NSAID)
CPT/HCPCS: 64483; J1100; Q9967